=== PATIENT | male | born 1930 | race Caucasian/White ===

== ENCOUNTER 2016-12-03 19:16 | Inpatient (IN) ==
[2016-12-03 20:07] LABS: MANUAL DIFF NEEDED? NO
[2016-12-03 20:13] LABS: BASO% 1.2 % (0.0-0.8); EOS# 0.41 X1000 (0.0-0.7); EOS% 4.2 % (0.0-10.0); HEMATOCRIT 41.1 % (42.0-52.0); HEMOGLOBIN 13.7 g/dL (14.0-18.0); IMM GRAN% 3.1 % (0.0-0.5); LYMPH# 3.17 X1000 (1.2-3.4); LYMPH% 32.7 % (20.5-51.1); MCH 29.5 PG (27-31); MCHC 33.3 g/dL (33-37); MCV 88.6 FL (81-99); MONO# 0.71 X1000 (0.11-0.59); MONO% 7.3 % (1.7-9.3); MPV 11.2 FL (7.4-10.4); NEUT% 51.5 % (42.2-75.2); PLT 318 X1000 (130-400); RBC 4.64 XMIL (4.7-6.1)
[2016-12-03] MEDS ORDERED: NS 500 ML IV ONE (20:19)
[2016-12-03 20:27] LABS: ALBUMIN 3.8 g/dL (3.5-5.0); CALCIUM 9.6 mg/dL (8.8-10.2); POTASSIUM 4.3 mmol/L (3.5-5.1); TOTAL BILIRUBIN 0.33 mg/dL (0.20-1.00); TOTAL PROTEIN 7.2 g/dL (6.3-8.3)
[2016-12-03 20:37] LABS: INR 1.04; PROTIME 10.9 Seconds (9.2-11.7)
--- NOTE | 2016-12-03 21:00 | PROVIDER DOCUMENTATION ---
This chart was entered by Yesi Verma Scribe, acting as scribe for Malachi Harrison MD. HPI-Abdominal Pain/GI Problem - General Chief Complaint: GI Bleed Stated Complaint: RECTAL BLEEDING Time Seen by Provider: 12/03/16 20:08 Source: patient Allergies/Adverse Reactions: Patient Allergies Allergy/AdvReac Type Severity Reaction Status Date / Time Penicillins Allergy Intermediate RASH Verified 12/03/16 20:36 pioglitazone HCl * Allergy Intermediate RASH Verified 12/03/16 20:36 [From Actos] Home Medications: Home Medication List Medication Instructions Recorded Confirmed Last Taken Type Metoprolol [Lopressor] 25 mg PO DAILY 10/14/12 12/03/16 12/03/16 07:00 History Glimepiride [Amaryl] 1 mg PO BID 07/25/15 12/03/16 12/03/16 07:00 History Aspirin [Adult Low Dose Aspirin EC] 81 mg PO DAILY #30 tablet. 07/26/1512/03/16 07:00 Rx Insulin Lispro [Humalog] 0 unit SQ AC + HS PRN PRN 12/03/16 12/03/16 12/03/16 History - History of Present Illness-ABD Nature of Presenting Problems: 86 Y/O M presents to ED with Rectal Bleeding. Pt states that this evening around 6:30pm, He had an onset of Rectal Bleeding. Pt states he has gone to the bathroom 7x times and each time he has gushed bright red blood from rectum. Pt states He believes it's about a Liter of blood. C/o of being lightheaded when standing, weakness, diaphoretic. States that he believes his sugar is low. Pt stated that he has a hx of rectal bleeding [address] Jacobs PCP. Hx of diabetes and 2 stints. Severity in ED: reports: moderate, severe Onset/Duration: reports: this evening Timing: reports: still present, changing over time Exposure to sick contacts?: No Associated Symptoms: reports: genitourinary problems, weakness. denies: chest pain, diarrhea, nausea, vomiting Last BM: this evening Dark Stools Present?: reports: bright red blood Rectal Bleeding: reports: bloody diarrhea # of Diarrhea Episodes: 7 Rectal Pain: reports: none Review of Systems - Adult - REVIEW OF SYSTEMS - ADULT Constitutional: denies: chills, fever Eyes: reports: no symptoms reported Ears, Nose, Mouth & Throat: reports: no symptoms reported Cardiovascular: reports: no symptoms reported Respiratory: reports: no symptoms reported Gastrointestinal: denies: diarrhea, nausea, vomiting Genitourinary: reports: other (rectal bleeding). denies: hematuria, incontinence Musculoskeletal: reports: no symptoms reported Integumentary: reports: no symptoms reported Neurological: reports: other (lightheaded, weakness) Psychiatric: reports: no symptoms reported Endocrine: reports: excessive sweating Hematologic/Lymphatic: reports: no symptoms reported Allergic/Immunologic: reports: no symptoms reported All Other Systems: Reviewed and Negative Past History - Adult - PAST MEDICAL HISTORY-ADULT Review of Records: reports: Old Records Reviewed, Nursing Assessment Review, Medications Reviewed, Social history reviewed & non-contributory. Cardiovascular: reports: arrhythmia, CAD, HTN Gastrointestinal: reports: ulcer Genitourinary: reports: kidney disease (stage 3) Endocrine/Immune: reports: Diabetes - PRIOR SURGERIES/PROCEDURES Surgical/Procedure History: reports: appendectomy, colonoscopy, cholecystectomy , cardiac stent, bowel surgery - IMMUNIZATION STATUS Childhood Immunizations: See Nurse Assessment Flu Vaccine: See Nurse Assessment - FAMILY HISTORY Family History: reviewed, not pertinent - SOCIAL HISTORY Smoking: non-smoker Substance Use: none/never Alcohol Use Frequency: never Living Situation: family Physical Exam-General - CONSTITUTIONAL General Appearance: alert, no apparent distress - EYES Eyes: PERRL/EOMI, pink conjunctivae - HEAD, EARS, NOSE, MOUTH & THROAT HENMT: normocephalic/atraumatic, moist mucous membranes, normal ENT inspection, TMs normal, pharynx normal - NECK Neck: non-tender, full range of motion, supple, normal inspection - RESPIRATORY Respiratory: lungs clear, normal breath sounds - CARDIOVASCULAR Cardiovascular: normal peripheral pulses, regular rate, rhythm - GASTROINTESTINAL (ABDOMEN) Abdominal Exam: non tender, soft - GENITOURINARY Rectal Exam: blood streaked stool, other (dried blood on rectal area not active bleeding) - LYMPHATIC Lymphatic: no adenopathy - MUSCULOSKELETAL Back Exam: normal inspection Extremity: normal range of motion - SKIN Integumentary: normal color, normal turgor - PSYCHIATRIC Psych/Mental Status: normal mood/affect, normal thought content, normal thought process, oriented x 3 Progress - PLAN OF CARE/RESULTS Progress/Plan/Lab Results: Vital Signs - 8 hr 05/25/17 19:27 Temperature 97.6 F Pulse Rate 89 Respiratory Rate 16 Blood Pressure 110/67 O2 Sat by Pulse Oximetry 100 Laboratory Results - last 24 hr 12/03/16 19:40 WBC 9.68 RBC 4.64 L Hgb 13.7 L Hct 41.1 L MCV 88.6 MCH 29.5 MCHC 33.3 RDW Std Deviation 13.9 Plt Count 318 MPV 11.2 H Immature Gran % (Auto) 3.1 H Neut % (Auto) 51.5 Lymph % (Auto) 32.7 [place] % (Auto) 7.3 Eos % (Auto) 4.2 Baso % (Auto) 1.2 H Immature Gran # (Auto) 0.30 H Neut # (Auto) 4.97 Lymph # (Auto) 3.17 [place] # (Auto) 0.71 H Eos # (Auto) 0.41 Baso # (Auto) 0.12 Orders Category Date Time Status Saline Loc DIRECTED Care 12/03/16 19:30 Active NPO Diet 12/03/16 19:30 Active AMYLASE [CHEM] Stat Lab 12/03/16 19:40 Received CBC WITH ELECTRONIC DIFF [HEME] Stat Lab 12/03/16 19:40 Completed COMPREHENSIVE METABOLIC PANEL [CHEM] Stat Lab 12/03/16 19:40 Received LIPASE [CHEM] Stat Lab 12/03/16 19:40 Received TYPE & SCREEN [BBK] Stat Lab 12/03/16 19:40 Received URINALYSIS W/POSS RFLX CULT-1 [URINALYSIS] Stat Lab 12/03/16 19:30 Uncollected Result Diagrams: 12/03/16 19:40 12/03/16 19:40 - CONSULTS/PCP/HOSPITALIST Notification #1 *Consult/PCP/Hospitalist*: Time Discussed: 20:49 Reason/Comments: Admit Consult Disposition: Admit (Admit Accepted) Departure - Departure Time of Disposition Decision: 20:55 DIAGNOSIS: Orthostatic dizziness GI bleed Qualifiers: GI bleed type/associated pathology: unspecified gastrointestinal hemorrhage type Qualified Code(s): K92.2 - Gastrointestinal hemorrhage, unspecified Disposition: ADMITTED INPATIENT 09 Certified Medical Emergency: Emergent Condition: Stable Referrals and Follow-Ups: Duane Jacobs MD [Primary Care Provider] - - Critical Care Note This patient required my direct & personal management of CC.: No This chart was documented by the indicated scribe, (Yesi Verma, Malgorzata) and accurately reflects the services I performed and decisions made by me, Malachi Harrison MD, as attested by the provider's signature.
--- NOTE | 2016-12-03 22:02 | HISTORY AND PHYSICAL ---
CHIEF COMPLAINT: Bright red blood per rectum. HISTORY OF PRESENTING ILLNESS: An 86-year-old male with a history of coronary disease, hypertension, diabetes mellitus type 2 and chronic kidney disease. Apparently had about 4 bouts of having bright red blood in the toilet. The patient states that he had similar symptoms about 2 years ago and at that time, he had unfortunate situation where he had a colonoscopy which resulted in puncture of his colon, and subsequently he had to have a colectomy. Patient states that he was doing fine and, however, he was having some bouts of bleeding periodically. However, it has been some time since his last time he had blood in the stools. At the time of my examination, he had denied any headache, fever, chills, chest pain, shortness of breath or any weight changes. Just complained of blood in the stools. PAST MEDICAL HISTORY: Diabetes mellitus type 2, coronary artery disease, hypertension, chronic kidney disease stage 3. PAST SURGICAL HISTORY: Coronary stent. Colectomy. ALLERGIES: Penicillin causes a rash. Pioglitazone. CURRENT MEDICATIONS: Listed in the MAR. SOCIAL HISTORY: No history of smoking. History of alcohol use in the past. No history of drug use. FAMILY HISTORY: No history of coronary artery disease. REVIEW OF SYSTEMS: Twelve point systems is as listed in the HPI. Other systems negative. PHYSICAL EXAMINATION: GENERAL: Cooperative, friendly male. He is resting comfortably now. VITAL SIGNS: Temperature 97.6 degrees, pulse 89, respirations 16, blood pressure 110/67, saturating 100%. HEENT: Atraumatic, normocephalic. Extraocular movements intact. PERRLA. NECK: No masses. CHEST: Clear to auscultation. CARDIOVASCULAR: Regular rate and rhythm. ABDOMEN: Soft. Positive bowel sounds. EXTREMITIES: No edema. NEUROLOGIC: He is awake, alert, oriented x3. : No bladder distention. SKIN: Warm. LABORATORIES AND STUDIES: Sodium 140, potassium 4.3, chloride 102, CO2 is 26, BUN is 34, creatinine 0.9, glucose is 147. WBC is 9.68, hemoglobin 13.7, hematocrit 41.1, platelets 318,000. ASSESSMENT: An 86-year-old elderly male with a history of coronary artery disease, diabetes mellitus type 2, hypertension, chronic kidney disease. He had present to the emergency department with complaint of bright red blood in the toilet. He apparently had about 4 episodes and states that he feels weak and somewhat dizzy. He was evaluated in the ER. He was orthostatic and due to his presenting symptoms, he will need hospitalization for further management. 1. Lower gastrointestinal bleed. 2. Coronary artery disease. 3. Hypertension. 4. Diabetes mellitus type 2. PLAN: 1. We will admit patient to medical floor with telemetry. 2. We will keep patient nothing per oral. 3. Monitor hemoglobin and hematocrit. 4. We will start patient on proton pump inhibitor. 5. Consult Gastroenterology. 6. We will monitor blood glucose and put patient on sliding scale insulin regimen. 7. We will monitor blood pressure closely. 8. We will patient on deep venous thrombosis prophylaxis with Sequential Compression Devices. 9. We will continue to follow and reassess. cc: Gary Ulrich MD
[2016-12-03] MEDS ORDERED: HUMULIN R SUBQ ONE (22:13)
[2016-12-03] MEDS ORDERED: ZOFRAN IV PRN (22:13)
[2016-12-03] MEDS: SODIUM CHLORIDE 0.9% INJ SCH (23:00)
[2016-12-03] MEDS: PROTONIX IV SCH (23:00)
[2016-12-03] MEDS: NS 1,000 ML IV SCH (23:02)
[2016-12-04 04:02] LABS: URINE CULTURE NEEDED? NO; URINE MICRO REVIEW NEEDED? NO; URINE SOURCE CLEAN CATCH
[2016-12-04 04:04] LABS: BILIRUBIN URINE NEGATIVE (NEGATIVE); BLOOD URINE NEGATIVE (NEGATIVE); COLOR YELLOW; GLUCOSE URINE TRACE mg/dL (NEGATIVE); LEUKOCYTES URINE NEGATIVE (NEGATIVE); NITRITE URINE NEGATIVE (NEGATIVE); PROTEIN URINE NEGATIVE (NEGATIVE); SP GRAVITY URINE 1.019; TURBIDITY URINE CLEAR (CLEAR); UROBILINOGEN URINE NORMAL (NORMAL)
[2016-12-04 04:05] LABS: UR EPITHELIAL CELLS <10 /HPF (<10); URINE BACTERIA NEGATIVE /HPF; URINE RBC <10 /HPF (<10); URINE WBC <10 /HPF (<10)
[2016-12-04] MEDS: HUMULIN R SUBQ SCH ×4 (06:28→22:19)
[2016-12-04 06:49] LABS: MANUAL DIFF NEEDED? NO
[2016-12-04 06:59] LABS: BASO% 0.5 % (0.0-0.8); EOS# 0.26 X1000 (0.0-0.7); EOS% 3.4 % (0.0-10.0); HEMATOCRIT 33.8 % (42.0-52.0); HEMOGLOBIN 11.3 g/dL (14.0-18.0); IMM GRAN# 0.23 X1000 (0.0-0.04); LYMPH# 2.04 X1000 (1.2-3.4); LYMPH% 26.5 % (20.5-51.1); MCH 29.7 PG (27-31); MCHC 33.4 g/dL (33-37); MCV 88.9 FL (81-99); MONO# 0.57 X1000 (0.11-0.59); MONO% 7.4 % (1.7-9.3); MPV 10.9 FL (7.4-10.4); NEUT% 59.2 % (42.2-75.2); PLT 210 X1000 (130-400)
[2016-12-04 07:10] LABS: CALCIUM 8.8 mg/dL (8.8-10.2); POTASSIUM 4.8 mmol/L (3.5-5.1)
[2016-12-04] MEDS: NS 1,000 ML IV SCH ×2 (09:02→19:10)
[2016-12-04] MEDS: SODIUM CHLORIDE 0.9% INJ SCH ×2 (10:12→22:18)
[2016-12-04] MEDS: PROTONIX IV SCH ×2 (10:12→22:18)
--- NOTE | 2016-12-04 19:16 | PROGRESS NOTE ---
DATE: 12/04/2016 SUBJECTIVE: Bleeding per rectum for the last 2 days. Admitted by the hospitalist and denies of any abdominal pain. No history of prior antibiotic use. No nausea, vomiting. Previous colonoscopy by Dr. Cannon was negative in 2014. He also had a AAA of 4.2 cm. REVIEW OF SYSTEMS: No chest pain, shortness of breath, PND, orthopnea. No palpitations. PHYSICAL EXAMINATION: Vital Signs: Afebrile, vitals are stable. 174 pounds. HEENT: Within normal limits. Neck: Supple. No lymphadenopathy. Chest: Clear. Heart: Sounds are regular. Abdomen: Belly is soft and no signs of peritonitis. Neurologic: Nonfocal. LABS: CBC: White cell count 7.6, hematocrit 33, platelets 210. SMA-7: Sodium 143, potassium 4.8, chloride 107, BUN 34, creatinine 1.6. Glucose 145, urinalysis is clear. Stool for occult blood was positive. ASSESSMENT AND PLAN: 1. Lower gastrointestinal bleeding. Previous workup was negative. 2. Status post right hemicolectomy. We will continue to monitor hematocrit. Orthostatic blood pressure. Hold aspirin and GI consult, Dr. Cannon group. 3. Chronic kidney disease, stable. 4. Abdominal aortic aneurysm, stable. Hold the aspirin. Discussed with the patient the plan of care. He is refusing for colonoscopy unless he is hemodynamically unstable. LEVEL OF DOCUMENTATION: 25 minutes. cc: Liban Jacobs MD
[2016-12-04] MEDS ORDERED: LOPRESSOR PO ONE (23:29)
[2016-12-05] MEDS: NS 1,000 ML IV SCH ×2 (03:46→14:05)
[2016-12-05 06:02] LABS: MANUAL DIFF NEEDED? NO
[2016-12-05 06:16] LABS: BASO% 0.7 % (0.0-0.8); EOS% 5.9 % (0.0-10.0); HEMATOCRIT 33.1 % (42.0-52.0); IMM GRAN# 0.19 X1000 (0.0-0.04); IMM GRAN% 2.8 % (0.0-0.5); LYMPH# 1.65 X1000 (1.2-3.4); LYMPH% 24.5 % (20.5-51.1); MCH 29.6 PG (27-31); MCHC 33.2 g/dL (33-37); MONO# 0.48 X1000 (0.11-0.59); MONO% 7.1 % (1.7-9.3); MPV 10.9 FL (7.4-10.4); PLT 212 X1000 (130-400); RBC 3.72 XMIL (4.7-6.1)
[2016-12-05] MEDS: SYNTHROID PO SCH (06:50)
[2016-12-05] MEDS: HUMULIN R SUBQ SCH ×4 (06:52→21:12)
--- NOTE | 2016-12-05 10:15 | PROGRESS NOTE ---
DATE: 12/05/2016 SUBJECTIVE: The patient has not had any more rectal bleeding. He has been constipated or at least says he has not had a bowel movement. OBJECTIVE: Vital signs show temperature 97.7 degrees Fahrenheit, pulse 73 and regular, respirations 15, blood pressure 154/69. He has been restarted on his metoprolol which had been held initially because of the GI bleed, and he has been restarted on his levothyroxine. HEENT: Normocephalic. EOMs intact. PERRLA. Throat clear. Lungs clear to auscultation and percussion without rhonchi, rales, or wheezes. Heart: Regular rate and rhythm without murmurs, gallops, or friction rubs. Abdomen is soft. Active bowel sounds. No organomegaly or tenderness. Neurological exam intact grossly. The patient is upset. He says he wants to go home. He is threatening to check out against medical advice. He says he has done that before. He says there is nothing wrong with him. The patient apparently had GI bleed 2 years ago and had an endoscopy that did not show the source of bleeding at the time, and he is convinced that there is not going to be anything that shows up at this time. GI has been consulted but has not seen him yet. I have recommended that he wait and let the GI specialist see him and make recommendations. It is certainly up to him about whether he stays or not. Hemoglobin has dropped from 13.7 down to 11.0 with IV fluids, so, it has not dropped very much. ASSESSMENT: Lower gastrointestinal bleed with bright red blood. PLAN: Continue care. I have recommended to the patient that he stay and have GI evaluate him as per Dr. Jacobs. If the patient does check out AMA, recommended he check back with Dr. Jacobs next week. cc: MD Liban Caruso Jr, MD
[2016-12-05] MEDS: LOPRESSOR PO SCH (10:20)
[2016-12-05] MEDS: SODIUM CHLORIDE 0.9% INJ SCH ×2 (10:20→21:13)
[2016-12-05] MEDS: PROTONIX IV SCH ×2 (10:20→21:13)
[2016-12-06] MEDS: NS 1,000 ML IV SCH ×2 (00:07→09:44)
[2016-12-06 06:23] LABS: MANUAL DIFF NEEDED? NO
[2016-12-06 06:30] LABS: EOS# 0.47 X1000 (0.0-0.7); EOS% 6.9 % (0.0-10.0); HEMATOCRIT 33.2 % (42.0-52.0); IMM GRAN# 0.15 X1000 (0.0-0.04); IMM GRAN% 2.2 % (0.0-0.5); LYMPH% 24.9 % (20.5-51.1); MCH 29.3 PG (27-31); MCHC 33.1 g/dL (33-37); MCV 88.3 FL (81-99); MONO# 0.54 X1000 (0.11-0.59); MONO% 7.9 % (1.7-9.3); MPV 10.7 FL (7.4-10.4); NEUT% 57.1 % (42.2-75.2); PLT 230 X1000 (130-400); RBC 3.76 XMIL (4.7-6.1)
[2016-12-06] MEDS: SYNTHROID PO SCH (06:36)
[2016-12-06] MEDS: HUMULIN R SUBQ SCH (07:37)
[2016-12-06 09:33] VITALS: BP 150/72
[2016-12-06] MEDS: SODIUM CHLORIDE 0.9% INJ SCH (09:42)
[2016-12-06] MEDS: LOPRESSOR PO SCH (09:42)
[2016-12-06] MEDS: PROTONIX IV SCH (09:42)
--- NOTE | 2016-12-06 11:13 | PROGRESS NOTE ---
DATE: 12/06/2016 SUBJECTIVE: The patient says he has had no more bleeding. Dr. Cannon saw him yesterday and checked him, and found some old blood. Dr. Cannon apparently talked with him about a colonoscopy but the patient does not want this at this time. Hemoglobin today is 11 which is what it was on the previous checks. Patient is eager to go home. OBJECTIVE: Vital Signs: Blood pressure is 150/72, respirations 18, pulse 88, temperature 97.7 degrees Fahrenheit. HEENT: Normocephalic. EOMs intact. PERRLA. Throat clear. Lungs: Clear to auscultation and percussion without rhonchi, rales, or wheezes. Heart: Regular rate and rhythm without murmurs, gallops, or friction rubs. Abdomen: Soft. Active bowel sounds. No organomegaly or tenderness. Neurological: Examination is intact grossly. ASSESSMENT: Lower gastrointestinal bleed. PLAN: We will discharge home. The patient does not desire any further workup at this point. I have suggested that he have followup with his primary care physician, Dr. Jacobs, and with Dr. Cannon. He may yet want to consider an outpatient colonoscopy. Certainly, if he starts to have more bleeding, he should get back in touch with us. We will discharge home on home medications except for aspirin. The patient does have hypothyroidism, AODM, hypertension. cc: MD Liban Caruso Jr, MD
--- NOTE | 2016-12-07 14:49 | CONSULTATION ---
DATE OF CONSULTATION: 12/04/2016 REASON FOR CONSULTATION: Rectal bleeding. HISTORY OF PRESENT ILLNESS: Pleasant 86-year-old gentleman who has been on 81 mg of aspirin and was doing fine until night, patient had urge to go to the bathroom and passed some bloody stools followed by 4 times until he came to the hospital. The last bowel movement was this morning and has not had a bowel movement since that time. He had a similar episode 2 years ago and he had a colonoscopy which resulted in perforation and subsequent partial colectomy. PAST MEDICAL HISTORY: Diabetes mellitus type 2. Coronary artery disease. Hypertension. Chronic kidney disease stage 3. PAST SURGICAL HISTORY: Coronary stents. Colectomy. ALLERGIES: Penicillin. CURRENT MEDICATIONS: Are listed in MAR. SOCIAL: He does not smoke. He used to drink, but not now. He does not use any drugs. FAMILY HISTORY: Positive for coronary artery disease. REVIEW OF SYSTEMS: Twelve point systems are listed in the HPI. Has no other symptoms. PHYSICAL EXAMINATION: General: Reveals this pleasant gentleman in no acute distress. HEENT: Conjunctival pallor present. Neck: Supple. Trachea in the midline. Vital Signs: Temperature 97.6 degrees, pulse 89, respirations 16, blood pressure 110/67, O2 saturation 100% on room air. Heart: Normal first and second heart sounds. Lungs: Clear. Abdomen: Soft. Nontender. Bowel sounds present. Extremities: No edema. Neurological: Awake, alert, oriented. No focal deficit. LABORATORY DATA: Electrolytes are normal. Hemoglobin and hematocrit are normal as well. Platelets 318,000. IMPRESSION: 1. Lower gastrointestinal bleed, most likely diverticular. 2. History of similar bleed followed by a colonoscopy, followed by a colon resection. 3. Coronary artery disease. 4. Hypertension. 5. Diabetes type 2. PLAN AND RECOMMENDATION: We will continue to monitor. His hematocrit looks stable, although once he is rehydrated it might come down. We will see how his bleeding will stop or continue. Depending on that, we will make further plans. cc: MD Liban Cano MD
--- NOTE | 2016-12-07 14:49 | CONSULTATION ---
DATE OF CONSULTATION: 12/05/2016 SUBJECTIVE: The patient had two small stools with dark, melenic color blood in it. There is no abdominal pain. Feels fine. Tolerating solid diet. OBJECTIVE: Vital Signs: Blood pressure 143/72, respirations 18, pulse 88, of 97.7 degrees. HEENT: Mild conjunctival pallor present. Neck: Supple. Trachea midline. Heart: Normal. Lungs: Normal. Abdomen: Benign. Neurological: Intact. LABORATORY DATA: Hematocrit did drop to 33 from the admission time, but again, there is no bleeding other than some small stool with old blood. IMPRESSION AND PLAN: I think patient is stable. It has been about 48 hours. If he continues to do the same, he should be able to go home tomorrow. 1. Lower gastrointestinal bleed. Most likely diverticular, stable. No evidence of active bleeding. 2. Coronary artery disease. 3. Hypertension. 4. Diabetes mellitus type 2. I have talked to him and reassured him that he if he does not have any bleeding by morning, I would make a recommendation for him to be discharged. Either I or Dr. Bruno will follow him as needed. I will talk to Dr. Jacobs about his future care. I have talked to him about not taking aspirin at least for 2-3 weeks. He agreed to do so. -1 cc: MD Liban Cano MD
--- NOTE | 2016-12-09 09:12 | DISCHARGE SUMMARY ---
ADMISSION DATE: 12/03/2016 DISCHARGE DATE: 12/06/2016 DIAGNOSIS: Gastrointestinal bleeding, presumed to be diverticular bleeding. SECONDARY DIAGNOSES: 1. Abdominal aneurysm, 4.2 cm. 2. Right bundle branch block. 3. Coronary artery disease with 2 stents. 4. Type 2 diabetes. 5. Hypertension. 6. Hyperlipidemia. 7. Hypothyroidism. 8. Diverticulosis. 9. Kidney stones. 10. Acid reflux disease. 11. Chronic kidney disease stage II. CONSULTANTS: Dr. Cannon. BRIEF HISTORY: Please see the H and P that was done by hospitalist. In brief, he is a pleasant, 84-year-old, white gentleman with previous history of diverticulosis and right hemicolectomy, who came in with bleeding per rectum. He was advised to stop aspirin. He was seen by Dr. Cannon. He does not want to do any endoscopy unless he is unstable. During the hospital course, his hemodynamics were stable. No signs of active bleeding noted. LABORATORY DATA: CBC: White cell count 6.8, hematocrit 33, platelets 230,000. SMA-7: Sodium 143, potassium 4.8, chloride 107, BUN 34, creatinine 1.6. DISPOSITION: The patient was discharged home in stable condition by Dr. Resendiz. DISCHARGE MEDICATIONS: Metoprolol 25 daily, Amaryl 1 mg p.o. b.i.d., hold aspirin, iron sulfate once a day, basically for maintenance care for diabetes, chronic kidney disease , and AAA. cc: MD Kimmy Lindquist MD MTDD
== END 2016-12-06 11:16 | disposition home or self-care (01) ==
LOC: ED 19:16 → SUATTDRO 21:53 → 3N 21:53
PROVIDERS: ADMIT Internal Medicine; ATTEND Internal Medicine